=== PATIENT | female | born 1950 | race Caucasian/White ===

== ENCOUNTER 2022-12-22 12:51 | Emergency (ER) | payer SELFPAY ==
[~2022-12-22] VITALS: Ht 157.5 cm; Wt 64.0 kg
[2022-12-22 13:06] VITALS: BP 183/86; PULSE 62; RESP 16; TEMP 98; O2SAT 97
[2022-12-22] MEDS ORDERED: KETOROLAC 30 MG/ML VIAL IM ONE (13:40)
[2022-12-22] MEDS ORDERED: GABAPENTIN 300 MG CAP PO ONE (13:40)
[2022-12-22] MEDS ORDERED: GABA300C PO (13:44)
[2022-12-22] MEDS ORDERED: CYCL-711 PO (13:44)
[2022-12-22] MEDS ORDERED: IBUP-2213 PO (13:44)
[2022-12-22] MEDS ORDERED: LID5T TP (13:44)
[2022-12-22] MEDS ORDERED: NITR100C7 PO (14:04)
[2022-12-22 14:10] LABS: APPEARANCE,URINE CLEAR (CLEAR); BILIRUBIN,URINE NEGATIVE (NEGATIVE); BLOOD, URINE NEGATIVE (NEGATIVE); COLOR,URINE YELLOW (YELLOW); LEUKOCYTE ESTERASE ,URINE 1+ (NEGATIVE); NITRITE, URINE NEGATIVE (NEGATIVE); PROTEIN,URINE NEGATIVE (NEGATIVE); UGLUCOSE NEGATIVE (NEGATIVE); UROBILINOGEN,URINE 0.2 EU/dL (0.2 - 1)
[2022-12-22 14:34] VITALS: BP 183/86; PULSE 62; RESP 16; TEMP 98; O2SAT 97
[2022-12-22 14:57] LABS: BACTERIA,URINE >30 (MANY) /HPF (None Seen); RBC,URINE 0-5 /HPF (0-5); SQUAMOUS EPITHELIAL CELL,UR 0-3 (FEW) /LPF (0-3 (FEW))
[2022-12-22 14:58] LABS: MUCUS,URINE None Seen /LPF (None Seen); TRICHOMONAS,URINE None Seen /HPF (None Seen); WHITE BLOOD CELL CASTS,URINE None Seen /LPF (None Seen); YEAST,URINE None Seen /HPF (None Seen)
== END 2022-12-22 14:35 | disposition home or self-care (01) ==
LOC: MED 12:51
DX: M54.16 Radiculopathy, lumbar region (principal); N39.0 Urinary tract infection, site not specified; I10 Essential (primary) hypertension; Z79.899 Other long term (current) drug therapy
CPT/HCPCS: 81001; 87086; 96372; 99283; J1885